=== PATIENT | male | born 1990 | race Caucasian/White ===

== ENCOUNTER 2019-12-25 09:54 | Emergency (ER) | payer OTHER ==
[2019-12-25] MEDS ORDERED: Lidocaine 1% 20 ML MDV INFILT ONE (09:55)
--- NOTE | 2019-12-25 10:04 | EDM.PDOC ---
ED HPI GENERAL MEDICAL PROBLEM - General Stated Complaint: CUT TO FINGER Time Seen by Provider: 12/25/19 10:03 Source of Information: Reports: Patient History Limitations: Reports: No Limitations - History of Present Illness INITIAL COMMENTS - FREE TEXT/NARRATIVE: 29-year-old male who was throwing a palate into a dumpster at about 9:30 this morning and the pallet crushed his left third and fourth fingers between the pallet and the metal edge of the dumpster. He avulsed the distal tip of the left middle finger and the nail. There were rations to the left fourth finger. He reports a sharp and throbbing pain in these fingers that he rates as a 7/10. There were no other injuries. He does have full range of motion in his left hand. There are no other associated signs or symptoms. There are no other modifying factors. 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 Surgical history as detailed below.) - Past Surgical History HEENT Surgical History: Reports: Tonsillectomy Social & Family History - Tobacco Use Smoking Status *Q: Current Some Day Smoker - Alcohol Use Alcohol Use History: Yes Alcohol Use Frequency: Socially (Occasionally) - Living Situation & Occupation Living situation: Reports: Single Occupation: Employed (Works at [employer].) Review of Systems - Review of Systems Review Of Systems: See Below Constitutional: Reports: No Symptoms (Last tetanus immunization was less than 5 years ago according to patient.) Eyes: Reports: No Symptoms Ears: Reports: No Symptoms Nose: Reports: No Symptoms Mouth/Throat: Reports: No Symptoms Respiratory: Reports: No Symptoms Cardiovascular: Reports: No Symptoms GI/Abdominal: Reports: No Symptoms Musculoskeletal: Reports: Hand Pain (Left third and fourth finger pain status post injury), Other (Right-hand dominant.) Skin: Reports: Wound (Avulsion of tip of left third finger) Neurological: Reports: No Symptoms Psychiatric: Reports: No Symptoms ED EXAM, GENERAL - Physical Exam Exam: See Below Exam Limited By: No Limitations General Appearance: Alert, WD/WN, Anxious, Moderate Distress Eye Exam: Bilateral Eye: EOMI, Normal Inspection Ears: Normal External Exam, Hearing Grossly Normal Ear Exam: Bilateral Ear: Auricle Normal Nose: Normal Inspection, Normal Mucosa, No Blood Throat/Mouth: Normal Inspection, Normal Lips, Normal Oropharynx, Normal Voice, No Airway Compromise Head: Atraumatic, Normocephalic Neck: Normal Inspection, Supple, Non-Tender, Full Range of Motion Respiratory/Chest: No Respiratory Distress, Lungs Clear, Normal Breath Sounds, No Accessory Muscle Use, Chest Non-Tender Cardiovascular: Normal Peripheral Pulses, Regular Rate, Rhythm, No Murmur Peripheral Pulses: 2+: Radial (L), Radial (R) GI/Abdominal: Normal Bowel Sounds, Soft, Non-Tender Back Exam: Normal Inspection, Full Range of Motion Extremities: Normal Range of Motion, No Pedal Edema, Normal Capillary Refill, Other (Tender left third and fourth fingers bony deformity noted. There is an avulsion of the tip of the left third finger with the nail being avulsed as well.) Neurological: Alert, Oriented, CN II-XII Intact, Normal Cognition, No Motor/ Sensory Deficits Psychiatric: Anxious Skin Exam: Warm, Dry, Normal Color, No Rash, Wound/Incision (As described above. ) ED TRAUMA EXTREMITY PROCEDURES - Laceration/Wound Repair Left Distal Digit - 3rd (Middle) Appearance: Subcutaneous, Moderately Contaminated, Other (Avulsed the tip of the finger off) Distal NVT: Neuro & Vascular Intact Anesthetic Type: Digital (With local added as well.) Local Anesthesia - Lidocaine (Xylocaine): 1% Plain Local Anesthetic Volume: 5cc (There was given anesthesia and no complications.) Skin Prep: Saline Saline Irrigation (cc's): 750 Exploration/Debridement/Repair: Wound Explored Tetanus Status Addressed: Other (Patient was up-to-date with tetanus immunization within the last 5 years.) Complications: No Progress/Comments: After informed verbal consent was obtained, the patient's left middle finger was anesthetized doing a digital block with some local anesthetic added and the end of the finger the wound was then explored and was copiously irrigated with normal saline 750 mL. Was quite a bit of tissue gone and no real way to close the wound. There was a tip of the bone at the end of the nail bed that was remaining are was exposed. The patient tolerated this well and there were no apparent complications. Course - Vital Signs Last Recorded V/S: Last Vital Signs Temp 36.8 C 12/25/19 09:54 Pulse 72 12/25/19 09:54 Resp 18 12/25/19 09:54 BP 110/53 L 12/25/19 09:54 Pulse Ox 99 12/25/19 09:54 - Orders/Labs/Meds Orders: Active Orders 24 hr Category Date Time Status Fingers Multiple Lt [CR] Stat Exams 12/25/19 10:19 Taken Bacitracin [Bacitracin Oint 1 GM] Med 12/25/19 12:42 Once 1 dose TOP ONETIME ONE cephALEXin [Keflex] Med 12/25/19 12:43 Once 1,000 mg PO ONETIME ONE Meds: Medications Discontinued Medications Generic Name Dose Route Start Last Admin Trade Name Freq PRN Reason Stop Dose Admin Ibuprofen 800 mg 12/25/19 10:18 12/25/19 10:38 Motrin PO 12/25/19 10:19 800 mg ONETIME ONE Administration - Radiology Interpretation Free Text/Narrative:: Left third and fourth finger x-ray showed a tuft fracture of the left third finger and no fracture seen of the left fourth finger. - Re-Assessments/Exams Free Text/Narrative Re-Assessment/Exam: 12/25/19 12:40: I discussed the patient's case with Dr. Alvarez, orthopedic hand specialist at [facility] in [place], and he felt that the patient could be followed up in hand clinic for wound recheck and evaluation for possible need for debridement and closure. He recommended an appropriate dressing and to place the patient on antibiotics. She will be given Keflex 1000 mg now and then 1000 mg 3 times a day for the next 7 days. I will also give the patient a prescription for hydrocodone 5/325 for more severe pain. He is scheduled for an appointment to see the hand specialist at the [facility] at [facility] on 12/28/2019 at 2:45 PM. Precautions and reasons for return to an emergency department were discussed with the patient only was in the emergency department and were detailed in his discharge instructions. Departure - Departure Time of Disposition: 12:55 Disposition: Home, Self-Care 01 Condition: Good Clinical Impression: Open fracture of tuft of distal phalanx of finger Nail avulsion, finger Qualifiers: Encounter type: initial encounter Qualified Code(s): S61.309A - Unspecified open wound of unspecified finger with damage to nail, initial encounter Finger contusion Qualifiers: Encounter type: initial encounter Finger: ring finger Damage to nail status: without damage Laterality: left Qualified Code(s): S60.042A - Contusion of left ring finger without damage to nail, initial encounter Contusion of finger with damage to nail Qualifiers: Encounter type: initial encounter Finger: middle finger Laterality: left Qualified Code(s): S60.132A - Contusion of left middle finger with damage to nail, initial encounter - Discharge Information Prescriptions: cephALEXin [Cephalexin] 1,000 mg PO TID 7 Days #63 capsule Hydrocodone/Acetaminophen [[place] 5-325 Tablet] 1 - 2 tab PO Q6H PRN #12 tablet PRN Reason: Moderate to severe pain Instructions: Contusion, [id number], Finger Fracture, Adult, [id number], Pain Medicine Instructions, [id number]-[id number], Nail Bed Injury, [id number] Additional Instructions: You have an avulsion of the of your left middle finger with an avulsion of part of the nailbed. There is a small amount of exposed bone and there was a fracture to the tuft of the distal phalanx of the left middle finger. The left fourth finger did not have any evidence of fracture. Leave the antral dressing intact on the left middle finger until the hand specialist seizure you on 2019. You may change the outer dressing as needed. Medication as prescribed ( Keflex 500 mg, hydrocodone 5/325). You may take ibuprofen 800 mg by mouth every 8 hours as needed for pain. You are scheduled to see a hand vascular surgery physician the [facility] at [facility] on [address] in [facility]. The appointment is on 12/28/2019 at 2:45 PM. You need to go to [address] which is on the south side of the building and you should wear a mask. You could bring one person with you. Try to get their about 15 minutes at a time. Back to the emergency department for spreading redness, marked increase in pain, or any other concerning sign or symptom. Sepsis Event Note - Focused Exam Vital Signs: Vital Signs Temp Pulse Resp BP Pulse Ox 12/25/19 09:54 36.8 C 72 18 110/53 L 99 Date Exam was Performed: 12/25/19 Time Exam was Performed: 12:44 - My Orders Last 24 Hours: My Active Orders 12/25/19 10:19 Fingers Multiple Lt [CR] Stat 12/25/19 12:42 Bacitracin [Bacitracin Oint 1 GM] 1 dose TOP ONETIME ONE 12/25/19 12:43 cephALEXin [Keflex] 1,000 mg PO ONETIME ONE - Assessment/Plan Last 24 Hours: My Active Orders 12/25/19 10:19 Fingers Multiple Lt [CR] Stat 12/25/19 12:42 Bacitracin [Bacitracin Oint 1 GM] 1 dose TOP ONETIME ONE 12/25/19 12:43 cephALEXin [Keflex] 1,000 mg PO ONETIME ONE
[2019-12-25] MEDS ORDERED: Ibuprofen 800 MG Tab PO ONE (10:18)
[2019-12-25] MEDS ORDERED: Bacitracin Oint 1 GM U/D Packet TOP ONE (12:42)
[2019-12-25] MEDS ORDERED: Cephalexin 500 MG Cap PO ONE (12:43)
--- NOTE | 2019-12-25 17:20 | CR ---
LEFT THIRD AND FOURTH FINGERS: Four views of the left 3rd and 4th fingers were obtained 12/25/19 - no comparisons. Avulsion in soft tissues of the tip of the 3rd finger is noted in an irregular fashion with loss of tissue. Comminuted fracture of the ungual tuft of the 3rd finger is noted with loss of portions of the ungual tuft. Open fracture is strongly compatible with this appearance. No other bone or joint abnormality was identified. MTDD
== END 2019-12-25 13:38 | disposition home or self-care (01) ==
LOC: FB.ED 09:54
DX: S62.633B Displaced fracture of distal phalanx of left middle finger, initial encounter for open fracture (principal); S60.042A Contusion of left ring finger without damage to nail, initial encounter; S60.032A Contusion of left middle finger without damage to nail, initial encounter; F17.200 Nicotine dependence, unspecified, uncomplicated; W23.0XXA Caught, crushed, jammed, or pinched between moving objects, initial encounter
CPT/HCPCS: 64450; 73140-LT; 99000; 99283-25; A9270-GY; J2001

== ENCOUNTER 2020-05-16 23:26 | Emergency (ER) | payer OTHER ==
--- NOTE | 2020-05-16 23:50 | EDM.PDOC ---
ED HPI GENERAL MEDICAL PROBLEM - General Chief Complaint: Lower Extremity Injury/Pain Stated Complaint: POSSIBLE BROKEN LEG Time Seen by Provider: 05/16/20 23:40 Source of Information: Reports: Patient History Limitations: Reports: Intoxication - History of Present Illness INITIAL COMMENTS - FREE TEXT/NARRATIVE: Magdy comes into [facility] ED with a painful swollen R ankle that was twisted while walking this evening. He is uncertain how the injury occurred, as he was intoxicated at the time. There was no LOC. His mother convinced him to have a medical examination. He has taken no analgesics. right lower leg Pain Score (Numeric/FACES): 5 - Related Data Allergies Allergy/AdvReac Type Severity Reaction Status Date / Time No Known Allergies Allergy Verified 12/25/19 10:18 Home Meds: Home Meds Hydrocodone/Acetaminophen [[place] 5-325 Tablet] 1 - 2 tab PO Q6H PRN #12 tablet 12/25/19 [Rx] cephALEXin [Cephalexin] 1,000 mg PO TID 7 Days #63 capsule 12/25/19 [Rx] Past Medical History - Past Health History Medical/Surgical History: Denies Medical/Surgical History (No chronic medical problems. Surgical history as detailed below.) Musculoskeletal History: Reports: Fracture Other Musculoskeletal History: L forearm fx - Past Surgical History HEENT Surgical History: Reports: Tonsillectomy Social & Family History - Family History Family Medical History: Noncontributory - Caffeine Use Caffeine Use: Reports: Coffee, Soda - Living Situation & Occupation Living situation: Reports: Single Occupation: Employed (Works at [employer].) Review of Systems - Review of Systems Review Of Systems: Comprehensive ROS is negative, except as noted in HPI. ED EXAM, GENERAL - Physical Exam Exam: See Below Exam Limited By: Intoxication General Appearance: Alert, WD/WN, Mild Distress, Obese Head: Atraumatic Neck: Normal Inspection, Supple, Non-Tender Respiratory/Chest: Lungs Clear Cardiovascular: Regular Rate, Rhythm, No Murmur Back Exam: Normal Inspection Extremities: Joint Swelling (R ankle: joint effusion present with tenderness overlying the lateral malleolus, no gross laxity to maneuver; drawer sign is negative; ) Neurological: Alert, Oriented, CN II-XII Intact, No Motor/Sensory Deficits Psychiatric: Normal Affect, Normal Mood Skin Exam: Warm, Dry, Intact, Normal Color, No Rash Lymphatic: No Adenopathy Course - Vital Signs Text/Narrative:: X rays of R ankle confirm a fibular fx with mild displacement. Magdy was placed in a CAM Boot, and will use crutches nonwt bearing. Last Recorded V/S: Last Vital Signs Temp 36.7 C 05/16/20 23:26 Pulse 91 05/16/20 23:26 Resp 16 05/16/20 23:26 BP 126/98 H 05/16/20 23:26 Pulse Ox 99 05/16/20 23:26 - Orders/Labs/Meds Orders: Active Orders 24 hr Category Date Time Status Ankle Min 3V Rt [CR] Stat Exams 05/16/20 23:45 Taken Departure - Departure Time of Disposition: 00:17 Disposition: Home, Self-Care 01 Condition: Fair Clinical Impression: Fracture of fibula - Discharge Information *PRESCRIPTION DRUG MONITORING PROGRAM REVIEWED*: Not Applicable *COPY OF PRESCRIPTION DRUG MONITORING REPORT IN PATIENT CJ: Not Applicable Forms: ED Department Discharge Sepsis Event Note (ED) - Evaluation Sepsis Screening Result: No Definite Risk - Focused Exam Vital Signs: Vital Signs Temp Pulse Resp BP Pulse Ox 05/16/20 23:26 36.7 C 91 16 126/98 H 99 - Problem List & Annotations (1) Fracture of fibula SNOMED Code(s): 67570234 Code(s): S82.409A - UNSP FRACTURE OF SHAFT OF UNSP FIBULA, INIT FOR CLOS FX Status: Acute Current Visit: Yes Annotation/Comment:: RICE, NSAIDs or Tylenol for pain, nonwt bearing, and CAM Boot. He will need to follow up with PCP regarding orthopedic managment. - Problem List Review Problem List Initiated/Reviewed/Updated: Yes - My Orders Last 24 Hours: My Active Orders 05/16/20 23:45 Ankle Min 3V Rt [CR] Stat - Assessment/Plan Last 24 Hours: My Active Orders 05/16/20 23:45 Ankle Min 3V Rt [CR] Stat Plan: Follow up with PCP.
--- NOTE | 2020-05-17 10:36 | CR ---
INDICATION: Fall with twisted right ankle, swelling present. RIGHT ANKLE: Three views of the right ankle reveal soft tissue swelling about the ankle mortise, to a greater extent on the right. There is an oblique fracture through the distal shaft -metaphysis of the lateral malleolus - fibula with slight medial offset of the distal fracture fragment of approximately 2.5 mm. Posterior offset of distal fracture fragment is noted of approximately 4 mm. The ankle mortise appeared to be fairly intact. Bone density appeared to be normal. No additional bone or joint abnormality was seen. Small sclerotic density is noted in the mid portion of the calcaneus likely representing a benign bone island. MTDD
== END 2020-05-17 00:39 | disposition home or self-care (01) ==
LOC: FB.ED 23:26
DX: S82.61XA Displaced fracture of lateral malleolus of right fibula, initial encounter for closed fracture (principal); X50.1XXA Overexertion from prolonged static or awkward postures, initial encounter
CPT/HCPCS: 73610-RT; 99283